=== PATIENT | male | born 1965 | race Caucasian/White ===

== ENCOUNTER 2020-04-26 15:58 | Inpatient (IN) | payer BC ==
[2020-04-26 17:02] VITALS: BMI 27.5
[2020-04-26] MEDS ORDERED: Ondansetron ODT 4 MG TAB PO PRN (18:23)
--- NOTE | 2020-04-26 20:14 | HP ---
PRIMARY CARE PHYSICIAN: Dr. Zhong. CHIEF COMPLAINT: "Burning sensation in chest." HISTORY OF PRESENT ILLNESS: The patient is a pleasant 54-year-old male with past medical history significant for hypertension and hyperlipidemia, who presents to the ER for a feeling of chest pain and burning in his stomach area approximately 30 minutes after he ate this morning. He also states that last night he had some heartburn, which is not irregular for him. He claims that he often has heartburn and takes Tums and Prilosec OTC for it, which generally resolves it. Today, when he was eating, about 10:25 this morning, he became diaphoretic and his stated he was breathing heavier than usual which he thinks was due to the pain. He pointed to his mid and upper epigastric area in reference to where it was located. He took some Tums this morning which helped him burp and stated that it helped some, but then he proceeded to the ER when the pain did not fully dissipate. He presented to the [facility] where they performed an EKG, a chest x-ray, and completed lab work. While there, he was given morphine 4 mg, nitroglycerin sublingual 0.4 mg, GI cocktail, a second nitroglycerin sublingual , and 324 mg of aspirin. He stated that the GI cocktail helped his pain the most and helped to go from about a pain level of 8 to a pain level of 6. He was then transferred to the telemetry unit in [place]. PAST MEDICAL HISTORY: Hypertension, hyperlipidemia. PAST SURGICAL HISTORY: Rotator cuff. ALLERGIES: PENICILLIN. MEDICATIONS: 1. Lisinopril 20 mg p.o. daily. 2. Atorvastatin 40 mg p.o. at bedtime. SOCIAL HISTORY: The patient lives at home with his . He works from home. He denies smoking or illicit drug history. He does state that he drinks on the weekends socially. FAMILY HISTORY: Positive for heart disease, his father at age 65 from heart complications. His mother has had a valve replacement and had a pacemaker placed. REVIEW OF SYSTEMS: All other review of systems is negative unless noted in the HPI. PHYSICAL EXAMINATION: VITAL SIGNS: Blood pressure 154/87, temp 97.8, pulse 69, respiratory rate 17, and O2 saturation 97% on room air. GENERAL: The patient appears in no acute distress. Denies pain at that time. HEENT: Head, atraumatic, normocephalic. Eyes, extraocular muscles intact. No nystagmus. PERRLA. NECK: No lymphadenopathy. Trachea, midline. Normal range of motion. RESPIRATORY: Clear to auscultation bilaterally. Normal chest rise. No wheezes , no rhonchi, no rales. CARDIOVASCULAR: Regular rate and rhythm. No murmurs, no gallops, no rubs. ABDOMEN: Slightly tender to the left upper quadrant. Bowel sounds are normal. No guarding. No rebound. Slightly distended. Negative Stein sign. EXTREMITIES: No edema. Peripheral pulses are intact. NEUROLOGIC: Alert and oriented to person, place, time. PSYCH: Normal affect. Normal behavior. LABORATORY DATA: Taken at [facility], white blood cells 14.2, hemoglobin 16, hematocrit 50.9. Sodium 137, potassium 4.0, BUN 20, creatinine 0.89, GFR 89, glucose 107, calcium 10, total bilirubin 0.5, AST 19, ALT 41, alkaline phosphatase 146. First two sets of troponins negative. Lipase 38. Chest x-ray, no acute process. EKG, normal sinus rhythm, pulse 71. IMPRESSION AND PLAN: 1. Chest pain versus dyspepsia versus cholecystitis. We will do an abdominal ultrasound this evening which will help determine further work up. He is to be started on pantoprazole twice a day. This evening we will continue to trend his troponin and to monitor him on telemetry overnight for any overnight events. He will also be started on IV fluids for gentle hydration therapy. 2. Hypertension. Blood pressure stable at this time. We will resume home medications. 3. Hyperlipidemia. Resume home medication. 4. Deep venous thrombosis prophylaxis in place with SCDs. Gastrointestinal prophylaxis covered with pantoprazole. The patient wishes to be a full code. Surrogate decision maker is his , Andreia, phone #[phone]. Job ID: [id number] MTDD
[2020-04-26] MEDS: Sodium Chloride 0.9% 1,000 ML IV SCH (20:45)
[2020-04-27 04:38] LABS: #Eosinphils 0.1 thou/uL (0.0-0.7); #Lymphocytes 2.3 thou/uL (1.20-3.40); #Monocytes 1.1 thou/uL (0.11-0.59); #Neutrophils 8.3 thou/uL (1.40-6.50); %Basophils 0.2 % (0.0-1.0); %Eosinophils 0.9 % (0.0-10.0); %Lymphocytes 19.8 % (21.0-51.0); %Monocytes 8.9 % (0.0-10.0); %Neutrophils 70.2 % (42.0-75.0); Hemoglobin 15.3 g/dL (14.0-18.0); Mean Corpuscular HGB CONC 33.3 g/dL (32.0-36.0); Mean Corpuscular Volume 89.9 fL (78.0-98.0); Mean Platelet Volume 7.3 fL (7.4-10.4); Platelet Count 242 thou/uL (130-400); RBC Distribution Width 11.9 % (11.5-14.5); Red Blood Cell (RBC) Count 5.09 mill/uL (4.70-6.10); White Blood Cell (WBC) Count 11.8 thou/uL (4.8-10.8)
[2020-04-27 05:19] LABS: Anion Gap 11 mmol/L (10-20); BUN (Urea Nitrogen) 14 mg/dL (8.4-25.7); Calc. Creatinine Clearance 122 mL/min (70-130); Calcium 8.7 mg/dL (7.8-10.44); Carbon Dioxide 25 mmol/L (22-29); Chloride 104 mmol/L (98-107); Estimated GFR-MDRD Greater than 90; Glucose 101 mg/dL (70-105); Potassium 3.9 mmol/L (3.5-5.1); Sodium 136 mmol/L (136-145)
--- NOTE | 2020-04-27 07:12 | ULT ---
EXAM: US Abdominal CLINICAL HISTORY: Epigastric pain. COMPARISON: None. FINDINGS: Pancreas: Echogenic. Partially obscured by bowel gas. IVC: Visualized IVC has a normal caliber. Aorta: Visualized aorta has a normal caliber. Liver:Normal hepatic parenchymal echotexture. No hepatic masses or intrahepatic biliary dilatation. R ight hepatic lobe measures 16 cm Gallbladder: No sonographic evidence of cholelithiasis, gallbladder wall thickening or pericholecysti c fluid. Stein's sign:Negative CBD: 0.3 cm common bile duct diameter Portal vein: Patent. Appropriate directional flow. Right kidney: Normal cortical echotexture. No hydronephrosis. Right kidney measuring 9.9 x 5.9 x 4.8 cm in length. Left kidney: Normal cortical echotexture. No hydronephrosis . Left kidney measuring 5.9 x 5.3 x 10.8 cm in length Spleen: Normal echotexture, measuring 12.2 cm IMPRESSION: 1. No sonographic evidence of cholelithiasis or cholecystitis. 2. No evidence of hydronephrosis.
[2020-04-27] MEDS ORDERED: Enoxaparin Sodium 30 MG/0.3 ML SYRINGE SC SCH (09:00)
[2020-04-27] MEDS: Atorvastatin Calcium 40 MG TAB PO SCH (09:19)
[2020-04-27] MEDS: Lisinopril 20 MG TAB PO SCH (09:19)
[2020-04-27] MEDS: Sodium Chloride 0.9% 1,000 ML IV SCH (09:20)
[2020-04-27] MEDS ORDERED: Lidocaine 2% Viscous Solution 20 ML, Aluminum & Magnesium Hydroxide 30 ML, Donnatal Eli... SSW SCH (18:15)
[2020-04-27] MEDS ORDERED: Sodium Chloride 0.9% 10 ML ONE (20:36)
--- NOTE | 2020-04-27 21:31 | PDOC.HOSPP ---
- Subjective Encounter Date: 04/27/20 Encounter Time: 10:00 Subjective: pt up in chair no complains - Objective Vital Signs & Weight: Vital Signs (12 hours) Temp Pulse Resp BP BP Pulse Ox 04/27/20 15:45 98.4 F 74 16 130/75 98 04/27/20 12:57 98.5 F 74 16 138/82 98 Weight Weight 185 lb 4.8 oz I&O: 04/26/20 04/27/20 04/28/20 06:59 06:59 06:59 Intake Total 939 1340 Output Total 900 Balance 939 440 Result Diagrams: 04/27/20 04:17 04/27/20 04:17 Hospitalist ROS - Review of Systems Respiratory: denies: cough, dry, shortness of breath, hemoptysis, SOB with excertion, pleuritic pain, sputum, wheezing, other Cardiovascular: denies: chest pain, palpitations, orthopnea, paroxysmal noc. dyspnea, edema, light headedness, other Gastrointestinal: denies: nausea, vomiting, abdominal pain, diarrhea, constipation, melena, hematochezia, other - Medication Medications: Active Medications Generic Name Dose Route Start Last Admin Trade Name Freq PRN Reason Stop Dose Admin Atorvastatin Calcium 40 mg 04/27/20 09:00 04/27/20 09:19 Lipitor PO 40 mg DAILY AYDE Administration Lisinopril 20 mg 04/27/20 09:00 04/27/20 09:19 Zestril PO 20 mg DAILY AYDE Administration Pantoprazole Sodium 40 mg 04/26/20 21:00 04/27/20 21:12 Protonix PO 40 mg BID AYDE Administration - Exam Neck: negative: supple, symmetric, no JVD, no thyromegaly, no lymphadenopathy, no carotid bruit, JVD Heart: negative: RRR, no murmur, no gallops, no rubs, normal peripheral pulses, irregular, diminshed peripheral pulses, murmur present, II/IV, III/IV Respiratory: negative: CTAB, no wheezes, no rales, no ronchi, normal chest expansion, no tachypnea, normal percussion, rales, rhonchi, tachypneic, wheezes Gastrointestinal: negative: soft, non-tender, non-distended, normal bowel sounds , no palpable masses, no hepatomegaly, no splenomegaly, no bruit, no guarding, no rigidity, tender to palpation, distended, diminished bowl sounds, voluntary guarding Hosp A/P (1) Chest pain Code(s): R07.9 - CHEST PAIN, UNSPECIFIED Status: Acute (2) GERD (gastroesophageal reflux disease) Code(s): K21.9 - GASTRO-ESOPHAGEAL REFLUX DISEASE WITHOUT ESOPHAGITIS Status: Acute (3) HTN (hypertension) Code(s): I10 - ESSENTIAL (PRIMARY) HYPERTENSION Status: Acute - Plan pt has a htn and family hx (father) of heart disease. will do a stress test. pt had coffee today. will also continue ppi. will educate him to eat low acidic foods. if his stress test negative may discharge home in am.
[2020-04-28] MEDS: Atorvastatin Calcium 40 MG TAB PO SCH (08:23)
[2020-04-28] MEDS: Lisinopril 20 MG TAB PO SCH (08:23)
[2020-04-28 12:11] VITALS: BP 130/82; TEMP 98.1
[2020-04-28 12:18] LABS: Hemoglobin 16.2 g/dL (14.0-18.0); Mean Corpuscular Hemoglobin 29.6 pg (27.0-31.0); Mean Corpuscular Volume 89.8 fL (78.0-98.0); Mean Platelet Volume 7.2 fL (7.4-10.4); Platelet Count 242 thou/uL (130-400); RBC Distribution Width 12.1 % (11.5-14.5); Red Blood Cell (RBC) Count 5.47 mill/uL (4.70-6.10); White Blood Cell (WBC) Count 9.6 thou/uL (4.8-10.8)
--- NOTE | 2020-04-28 12:27 | NM ---
EXAM: CARDIAC SPECT HISTORY: Chest pain TECHNIQUE: A myocardial perfusion scan was performed using the single isotope 2 day protocol with olimpia hnetium 99m sestamibi. [30 mCi] was injected intravenously for the rest exam followed by 30 mCi for the stress study. Exercise stress was monitored and interpreted by Lupe Reese nurse practitioner FINDINGS: Homogeneous tracer distribution is seen in the myocardial segments on stress and rest image s without fixed or reversible defects. Gated SPECT LVEF: 68% Wall motion exam: Normal IMPRESSION: Normal myocardial perfusion scan
[2020-04-28 12:33] LABS: ALT (SGPT) 29 U/L (8-55); AST (SGOT) 14 U/L (5-34); Albumin 4.4 g/dL (3.5-5.0); Alkaline Phosphatase 96 U/L (40-110); Bilirubin, Direct 0.4 mg/dL (0.1-0.3); Bilirubin, Total 0.7 mg/dL (0.2-1.2); Protein, Total 7.1 g/dL (6.0-8.3)
--- NOTE | 2020-04-28 14:53 | DIS ---
DATE OF ADMISSION: 04/26/2020 DATE OF DISCHARGE: 04/27/2020 DISCHARGE DIAGNOSES: 1. Chest pain likely secondary to gastroesophageal reflux disease. 2. Leukocytosis. 3. Elevated alkaline phosphatase. 4. Elevated bilirubin. CONSULTATIONS: None. PROCEDURES: Nuclear stress test. BRIEF HISTORY OF PRESENT ILLNESS: This is a 54-year-old male with past medical history of hypertension, hyperlipidemia, who presented to the emergency room with chest pain and burning in his stomach. The patient stated that it occurred long after he ate. He states that he ate some fried food and pizza. Normally, he states his burning resolves with Tums and Prilosec. However, these did not resolve his pain. .He also experienced some diaphoresis, so he came to the emergency room for further evaluation. EKG was unremarkable. The patient states that his pain resolved after receiving a GI cocktail. He reported no relief with nitroglycerin or aspirin. HOSPITAL COURSE: 1. Chest pain likely secondary to GERD: The patient had an abdominal ultrasound performed, which was normal. He underwent an exercise/nuclear stress test, which was unremarkable. His pain resolved on the day of discharge. The patient denied any pain with exertion. His troponins were trended x3 and were normal. He will be discharged with Protonix 40 mg twice daily to be taken before breakfast and before dinner. If the patient is to have recurrence of his heartburn or persistent heartburn symptoms, he should consider seeing a GI doctor as an outpatient for evaluation of an EGD. 2. Leukocytosis: The patient had a white count of 11.8, which resolved to 9.6 on the . His chest x-ray was normal. 3. Elevated bilirubin: The patient had a mild elevation of his direct bilirubin of 0.4. His LFTs were normal, however. This can be repeated as an outpatient. 4. Elevated alkaline phosphatase: The patient had elevated alkaline phosphatase of 146, which improved to 96 at the time of discharge. Ultrasound of his abdomen did not show any gallstones. DISCHARGE PHYSICAL EXAMINATION: VITAL SIGNS: Temperature 98.1, heart rate 86, respiratory rate 16, O2 saturation 100% on room air, and blood pressure 130/82. GENERAL: The patient is alert, awake, and oriented x3. CVS: Regular rate and rhythm with no murmurs, rubs, or gallops. LUNGS: Clear to auscultation bilaterally. ABDOMEN: Positive bowel sounds. Soft, nontender, and nondistended. EXTREMITIES: No edema. PERTINENT LABORATORY DATA: CBC on 04/28: Normal. BMP on 04/27: Normal. LFTs on 04/28: Total bilirubin 0.7, direct bilirubin 0.4, AST 14, ALT 29, and alkaline phosphatase 96. Troponin I: Less than 0.010. IMAGING DATA: Chest x-ray on 04/26: No acute thoracic finding. Nuclear stress test on 04/27: Normal myocardial perfusion exam. Abdominal ultrasound on 04/27: No cholelithiasis or cholecystitis. No hydronephrosis. DISCHARGE CONDITION: Stable. ACTIVITY: As tolerated. DIET: Regular diet. DISCHARGE MEDICATIONS: 1. Atorvastatin 40 mg p.o. daily. 2. Klonopin 1 mg tablet p.o. b.i.d. p.r.n. 3. Lisinopril 20 mg p.o. daily. 4. Protonix 40 mg p.o. b.i.d. DISCHARGE INSTRUCTIONS: The patient to follow up with his PCP in a week. Consider seeing a GI doctor for an upper endoscopy as an outpatient. The patient should have LFTs repeated to ensure resolution of elevated bilirubin. Job ID: [id number] MTDD
== END 2020-04-28 14:50 | disposition home or self-care (01) | DRG 392 ==
LOC: 2NO 15:58
PROVIDERS: ADMIT Internal Medicine; ATTEND Internal Medicine
DX: K21.9 Gastro-esophageal reflux disease without esophagitis (principal); D72.829 Elevated white blood cell count, unspecified; I10 Essential (primary) hypertension; E78.5 Hyperlipidemia, unspecified; Z88.0 Allergy status to penicillin; Z79.01 Long term (current) use of anticoagulants; Z95.2 Presence of prosthetic heart valve; Z95.0 Presence of cardiac pacemaker
CPT/HCPCS: 36415; 78452; 80048; 80076; 85025; 85027; 93017; 93975; A9500